=== PATIENT | male | born 2000 | race Caucasian/White ===

== ENCOUNTER 2025-03-10 09:40 | Emergency (ER) | payer OTHER ==
[2025-03-10] MEDS ORDERED: METHYLPREDNISOLONE 125 MG INJ ONE (10:04)
[2025-03-10] MEDS ORDERED: KETOROLAC 30 MG/ML INJ ONE (10:10)
--- NOTE | 2025-03-10 10:51 | RAD REPORT ---
EXAMINATION: CT LUMBAR SPINE WITHOUT CONTRAST CLINICAL INDICATION: Right leg radiculopathy. TECHNIQUE: Axial CT images were obtained through the lumbar spine in soft tissue and bone windows wit hout intravenous contrast. Coronal and Sagittal reformatted images were created from the data set. One or more of the following dose reduction techniques were used: Automated exposure control, adjustm ent of the mA and/ or kV according to patient size, and/or iterative reconstruction. Unless otherwise specified, incidental findings do not require dedicated imaging follow-up. COMPARISON: No prior exam. FINDINGS: For purposes of this dictation, it is assumed that there are 5 non rib-bearing lumbar type vertebrae, and the most caudal fully segmented lumbar vertebra is labeled L5. No fracture seen No dislocation. Disc bulge, ligamentum flavum and facet hypertrophy L3-4 results in the thecal sac measuring approxim ately 6 mm. Mild narrowing of the neural foramina. Small central disc protrusion and disc bulge L4-5. This in combination with ligamentum flavum and fac et hypertrophy results in the thecal sac measuring approximately 7 mm. Mild to moderate narrowing of the right neural foramina. Small to moderate right posterior lateral disc herniation L5-S1 narrows the right neural foramina.. T his space narrowing and osteophytes are present. Facet hypertrophy is seen. Mild narrowing of the neural foramina. 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 Further evaluation with nonemergent MRI
--- NOTE | 2025-03-10 12:03 | EDPHYS ---
Physician Documentation [facility] Name: Jaun Adkins Age: 24 yrs Sex: Male : 2000 Arrival Date: 03/10/2025 Time: 09:40 Bed 20 Private MD: ED Physician Marah Gibson HPI: 03/10 10:10 This 24 yrs old Male presents to ER via Ambulatory with complaints of Back Pain, Leg sp3 Pain. 10:10 24-year-old male with no past medical history other than ongoing low back pain which sp3 she has sought physical therapy, massage and chiropractor services which have not helped. He has had no significant imaging of his lower back. Symptoms have been going off-and-on for the last year. Patient presents today with continued low back pain with pain down the posterior aspect of both of his legs causing his inability to perform his daily duties at times. Patient is in the process of getting a primary care physician at the [facility] as he is currently a business services officer.. Historical: - Allergies: 09:49 PENICILLINS; ll1 - Home Meds: 09:49 None [Active]; ll1 - PMHx: 09:49 None; ll1 - PSHx: 09:49 None; ll1 - Immunization history:: Adult Immunizations up to date. - Infectious Disease History:: Denies. - Social history:: Smoking status: Reported history of juuling and/or vaping. Patient denies any tobacco usage or history of. ROS: 10:13 Constitutional: Negative for fever, chills, and weight loss, Eyes: Negative for injury, sp3 pain, redness, and discharge, Neck: Negative for injury, pain, and swelling, Cardiovascular: Negative for chest pain, palpitations, and edema, Respiratory: Negative for shortness of breath, cough, wheezing, and pleuritic chest pain, Abdomen/GI: Negative for abdominal pain, nausea, vomiting, diarrhea, and constipation, MS/Extremity: Negative for injury and deformity, Skin: Negative for injury, rash, and discoloration, Neuro: Negative for headache, weakness, numbness, tingling, and seizure, Psych: Negative for depression, anxiety, suicide ideation, homicidal ideation, and hallucinations, Allergy/Immunology: Negative for hives, rash, and allergies, Endocrine: Negative for neck swelling, polydipsia, polyuria, polyphagia, and marked weight changes, 10:13 All other systems are negative, Exam: 10:14 Constitutional: This is a well developed, well nourished patient who is awake, alert, sp3 and in no acute distress. Head/Face: Normocephalic, atraumatic. Eyes: Pupils equal round and reactive to light, extra-ocular motions intact. Lids and lashes normal. Conjunctiva and sclera are non-icteric and not injected. Cornea within normal limits. Periorbital areas with no swelling, redness, or edema. Neck: Trachea midline, no thyromegaly or masses palpated, and no cervical lymphadenopathy. Supple, full range of motion without nuchal rigidity, or vertebral point tenderness. No Meningismus. Chest/axilla: Normal chest wall appearance and motion. Nontender with no deformity. No lesions are appreciated. Cardiovascular: Regular rate and rhythm with a normal S1 and S2. No gallops, murmurs, or rubs. Normal PMI, no JVD. No pulse deficits. Respiratory: Lungs have equal breath sounds bilaterally, clear to auscultation and percussion. No rales, rhonchi or wheezes noted. No increased work of breathing, no retractions or nasal flaring. Abdomen/GI: Soft, non-tender, with normal bowel sounds. No distension or tympany. No guarding or rebound. No evidence of tenderness throughout. Skin: Warm, dry with normal turgor. Normal color with no rashes, no lesions, and no evidence of cellulitis. MS/ Extremity: Pulses equal, no cyanosis. Neurovascular intact. Full, normal range of motion. Neuro: Awake and alert, GCS 15, oriented to person, place, time, and situation. Cranial nerves II-XII grossly intact. Motor strength 5/5 in all extremities. Sensory grossly intact. Cerebellar exam normal. Normal gait. Psych: Awake, alert, with orientation to person, place and time. Behavior, mood, and affect are within normal limits. 10:14 Back: Patient with low back pain with radicular type pain inducible with straight leg raise at 30 degrees bilaterally. No saddle anesthesia or other neurological deficit. Patient is ambulatory although it is painful., Vital Signs: 09:50 BP 150 / 105; Pulse 83; Resp 16; Temp 97; Pulse Ox 99% ; Weight 99.79 kg; Height 6 ft. ll1 4 in. ; 11:11 BP 141 / 77; Pulse 85; Resp 18 S; Pulse Ox 100% on R/A; kc6 09:50 Body Mass Index 26.78 (99.79 kg, 193.04 cm) ll1 MDM: 09:46 Medical Screening Exam initiated sp3 10:15 Data reviewed: vital signs, nurses notes. ED course: 44-year-old male with low back sp3 pain. Differential diagnosis includes sciatica versus radicular pain versus herniated disc versus other. Will obtain CT scan of the lumbosacral spine and treat with ketorolac IM and Solu-Medrol IM. [facility] follow-up with MRI within that system. Disposition pending workup and patient course.. 12:00 ED course: CT demonstrates L5-S1 herniation with other abnormalities. Will give copy of sp3 CT results to patient for follow-up to his [facility] physician team. Patient improved with medications. Will discharge on p.o. NSAIDs and Medrol Dosepak.. 03/10 10:01 Order name: CT Lumbar Spine Wo Con; Complete Time: 11:51 sp3 Administered Medications: 10:17 Drug: Ketorolac IM 30 mg IM once Route: IM; Site: left deltoid; kc6 11:12 Follow up: Response: No adverse reaction kc6 10:17 Drug: MethylPREDNISolone Sodium Succinate IM 125 mg IM once Route: IM; Site: right kc6 deltoid; 11:12 Follow up: Response: No adverse reaction kc6 Disposition Summary: 03/10/25 12:03 Discharge Ordered Notes: Location: Home sp3 Condition: Stable sp3 Diagnosis - Lumbar radiculopathy, low back pain sp3 Followup: sp3 - With: Private Physician - When: Upon discharge from the Emergency Department - Reason: Continuance of care Discharge Instructions: - Discharge Summary Sheet sp3 - Lumbosacral Radiculopathy sp3 Forms: - Medication Reconciliation Form sp3 - Antibiotic Education sp3 - Prescription Opioid Use sp3 - Patient Portal Instructions sp3 - Leadership Thank You Letter sp3 Prescriptions: - Diclofenac Sodium 75 mg Oral Tablet Sustained Release - take 1 tablet ORAL route 2 times per day; 30 tablet; Refills: 0, Product sp3 Selection Permitted - Medrol (Jase) 4 mg Oral Tablets, Dose Pack - take 1 tablet ORAL route as directed - follow package instructions; 1 packet; sp3 Refills: 0, Product Selection Permitted Signatures: Dispatcher [employer] Deonte Escalante, RN RN ll1 Marah Gibson MD MD sp3 Katie Trinh RN RN kc6 Corrections: (The following items were deleted from the chart) 10:01 10:01 Spine Lumbar Wo Con+CT.RAD.BRZ ordered. EDMS EDMS
--- NOTE | 2025-03-10 12:03 | ER ---
Nurse's Notes [facility] Name: Jaun Adkins Age: 24 yrs Sex: Male : 2000 Arrival Date: 03/10/2025 Time: 09:40 Bed 20 Private MD: Diagnosis: Lumbar radiculopathy, low back pain Presentation: 03/10 09:49 Chief complaint: Patient states: Left lower back pain that radiates into L leg for 2 ll1 weeks. 09:50 Coronavirus screen: Client denies travel out of the [place] in the last 14 days. At this ll1 time, the client does not indicate any symptoms associated with coronavirus-19. Ebola Screen: Patient denies travel to an Ebola-affected area in the 21 days before illness onset. Initial Sepsis Screen: Does the patient meet any 2 criteria? No. Patient's initial sepsis screen is negative. Does the patient have a suspected source of infection? No. Patient's initial sepsis screen is negative. Risk Assessment: Do you want to hurt yourself or someone else? Patient reports no desire to harm self or others. Onset of symptoms was February 24, 2025. 09:50 Method Of Arrival: Ambulatory ll1 09:50 Acuity: KIRIT 3 ll1 Historical: - Allergies: 09:49 PENICILLINS; ll1 - Home Meds: 09:49 None [Active]; ll1 - PMHx: 09:49 None; ll1 - PSHx: 09:49 None; ll1 - Immunization history:: Adult Immunizations up to date. - Infectious Disease History:: Denies. - Social history:: Smoking status: Reported history of juuling and/or vaping. Patient denies any tobacco usage or history of. Screenin:12 [facility] ED Fall Risk Assessment (Adult) History of falling in the last 3 months, kc6 including since admission No falls in past 3 months (0 pts) Confusion or Disorientation No (0 pts) Intoxicated or Sedated No (0 pts) Impaired Gait No (0 pts) Mobility Assist Device Used No (0 pt) Altered Elimination No (0 pt) Score/Fall Risk Level 0 - 2 = Low Risk Oriented to surroundings. Abuse screen: Denies threats or abuse. Denies injuries from another. Nutritional screening: No deficits noted. Tuberculosis screening: No symptoms or risk factors identified. Assessment: 11:12 General: Appears in no apparent distress. comfortable, well groomed, well developed, kc6 Behavior is calm, cooperative, appropriate for age. Pain: Complains of pain in left low back Pain radiates to left leg Pain began years ago. Is chronic. Neuro: Level of Consciousness is awake, alert, obeys commands, Oriented to person, place, time, situation, Appropriate for age. Respiratory: Airway is patent Trachea midline Respiratory effort is even, unlabored, Respiratory pattern is regular, symmetrical. Derm: No signs and/or symptoms reported regarding the dermatologic system. Skin is intact, is healthy with good turgor, Skin is pink, warm \T\ dry. Musculoskeletal: Circulation, motion, and sensation intact. Range of motion: intact in all extremities. 12:37 Reassessment: Patient appears in no apparent distress at this time. No changes from kc6 previously documented assessment. Patient and/or family updated on plan of care and expected duration. Pain level reassessed. Patient is alert, oriented x 3, equal unlabored respirations, skin warm/dry/pink. Patient states feeling better. Patient states symptoms have improved. Vital Signs: 09:50 BP 150 / 105; Pulse 83; Resp 16; Temp 97; Pulse Ox 99% ; Weight 99.79 kg; Height 6 ft. ll1 4 in. ; 11:11 BP 141 / 77; Pulse 85; Resp 18 S; Pulse Ox 100% on R/A; kc6 09:50 Body Mass Index 26.78 (99.79 kg, 193.04 cm) ll1 ED Course: 09:43 Patient arrived in ED. mr 09:43 Arm band placed on Patient placed in an exam room, on a stretcher. ll1 09:46 Marah Gibson MD is Attending Physician. sp3 09:48 Katie Trinh, JILLIAN is Primary Nurse. kc6 09:51 Triage completed. ll1 10:12 CT Lumbar Spine Wo Con In Process Unspecified. EDMS 11:12 Patient has correct armband on for positive identification. Bed in low position. Call kc6 light in reach. Side rails up X 1. Pulse ox on. NIBP on. Door closed. Noise minimized. Lights dimmed. Pillow given. Verbal reassurance given. 11:12 Patient maintains SpO2 saturation greater than 95% on room air. kc6 12:37 No provider procedures requiring assistance completed. Patient did not have IV access kc6 during this emergency room visit. Administered Medications: 10:17 Drug: Ketorolac IM 30 mg IM once Route: IM; Site: left deltoid; kc6 11:12 Follow up: Response: No adverse reaction kc6 10:17 Drug: MethylPREDNISolone Sodium Succinate IM 125 mg IM once Route: IM; Site: right kc6 deltoid; 11:12 Follow up: Response: No adverse reaction kc6 Medication: 12:37 VIS not applicable for this client. kc6 Outcome: 12:03 Discharge ordered by MD. torrez 12:37 Discharged to home ambulatory, kc6 12:37 Condition: good 12:37 Discharge instructions given to patient, Instructed on discharge instructions, follow up and referral plans. medication usage, Demonstrated understanding of instructions, follow-up care, medications, Prescriptions given X 2, 12:37 Patient left the ED. kc6 Signatures: Dispatcher [employer] EDMS Marisela Connolly, Reg Reg mr Deonte Veras, RN RN ll1 Marah Gibson MD MD sp3 Katie Trinh RN RN kc6
[2025-03-10 12:50] VITALS: TEMP 97
[2025-03-10 12:53] VITALS: BP 141/77; O2SAT 100
== END 2025-03-10 12:37 | disposition home or self-care (01) ==
LOC: ER 09:40
DX: M54.16 Radiculopathy, lumbar region (principal)
CPT/HCPCS: 72131; J2919